=== PATIENT | female | born 1985 | race Hispanic/Latino ===

== ENCOUNTER 2021-09-29 12:17 | Observation (INO) | payer OTHER, SELFPAY ==
[2021-09-29] MEDS ORDERED: Promethazine HCl 25 MG/ML VIAL IM PRN (12:52)
[2021-09-29] MEDS ORDERED: Acetaminophen 500 MG TAB PO PRN (12:52)
[2021-09-29 12:53] VITALS: BMI 35.3
[2021-09-29] MEDS: Betamet Acet/Betamet Na Ph 30 MG/5 ML VIAL IM SCH (13:40)
[2021-09-29 13:55] LABS: ALT (SGPT) 123 U/L (8-55); AST (SGOT) 69 U/L (5-34); Albumin 3.1 g/dL (3.5-5.0); Alkaline Phosphatase 223 U/L (40-110); Anion Gap 16 mmol/L (10-20); BUN (Urea Nitrogen) 8 mg/dL (7.0-18.7); Bilirubin, Total 0.6 mg/dL (0.2-1.2); Calc. Creatinine Clearance 169 mL/min (70-130); Calcium 9.2 mg/dL (7.8-10.44); Carbon Dioxide 18 mmol/L (22-29); Chloride 105 mmol/L (98-107); Globulin 3.5 g/dL (2.4-3.5); Glucose 105 mg/dL (70-105); Potassium 3.9 mmol/L (3.5-5.1); Protein, Total 6.6 g/dL (6.0-8.3); Sodium 135 mmol/L (136-145)
[2021-09-29 19:16] LABS: SARS-CoV-2 NAA Rapid Test Not Detected (NotDetected)
[2021-09-29] MEDS ORDERED: HumaLOG 300 UNITS/3 ML VIAL SC SCH (20:00)
[2021-09-29] MEDS: Ursodiol 300 MG CAP PO SCH (21:57)
[2021-09-30] MEDS ORDERED: Ferrous Sulfate 325 MG TAB PO SCH (08:00)
[2021-09-30] MEDS: Ursodiol 300 MG CAP PO SCH ×2 (08:09→11:44)
[2021-09-30] MEDS ORDERED: Aspirin 81 mg Enteric Coated Tablet PO SCH (09:00)
[2021-09-30] MEDS ORDERED: Prenatal Vitamin 1 TAB PO SCH (09:00)
[2021-09-30] MEDS: Betamet Acet/Betamet Na Ph 30 MG/5 ML VIAL IM SCH (14:05)
== END 2021-09-30 17:00 | disposition home health service (06) ==
LOC: CSHLD/OP 12:17 → CSHLD 09-30 06:58 → INTOOBSV 09-30 06:58
PROVIDERS: ADMIT Family Medicine; ATTEND Family Medicine
DX: O26.613 Liver and biliary tract disorders in pregnancy, third trimester (principal); K83.1 Obstruction of bile duct; O32.2XX1 Maternal care for transverse and oblique lie, fetus 1; O32.2XX2 Maternal care for transverse and oblique lie, fetus 2; O30.033 Twin pregnancy, monochorionic/diamniotic, third trimester; O09.523 Supervision of elderly multigravida, third trimester; O24.419 Gestational diabetes mellitus in pregnancy, unspecified control; Z3A.34 34 weeks gestation of pregnancy; Z79.82 Long term (current) use of aspirin; Z98.890 Other specified postprocedural states; Z20.822 Contact with and (suspected) exposure to COVID-19
CPT/HCPCS: 36416; 76810; 76819; 80053; 82239; 99285; J0702; J1815; U0002

== ENCOUNTER 2021-10-06 14:57 | Day surgery (SDC) | payer SELFPAY ==
[2021-10-06 16:13] VITALS: BMI 33.1
[2021-10-06 19:10] LABS: SARS-CoV-2 NAA Rapid Test Not Detected (NotDetected)
== END 2021-10-06 18:13 | disposition home or self-care (01) ==
LOC: CSHLD/OP 14:57
PROVIDERS: ATTEND Family Medicine
DX: O24.419 Gestational diabetes mellitus in pregnancy, unspecified control (principal); O30.003 Twin pregnancy, unspecified number of placenta and unspecified number of amniotic sacs, third trimester; O32.2XX2 Maternal care for transverse and oblique lie, fetus 2; O09.523 Supervision of elderly multigravida, third trimester; Z3A.35 35 weeks gestation of pregnancy; Z79.82 Long term (current) use of aspirin; Z20.822 Contact with and (suspected) exposure to COVID-19
CPT/HCPCS: 59025; 76815; 76819; 99283; U0002

== ENCOUNTER 2021-10-08 10:39 | Inpatient (IN) | payer MEDICAID, OTHER, SELFPAY ==
[2021-10-08] MEDS: Lactated Ringer's 1,000 ML IV SCH (11:25)
[2021-10-08] MEDS ORDERED: hydrALAZINE 20 MG/ML VIAL SLOW IVP PRN (11:30)
[2021-10-08] MEDS ORDERED: Promethazine HCl 25 MG/ML VIAL IM PRN ×2 (11:30→15:15)
[2021-10-08] MEDS ORDERED: Ondansetron PF 4 MG/2 ML Vial IVP PRN ×2 (11:30→15:15)
[2021-10-08] MEDS ORDERED: Bicitra 30 ML UDCUP PO PRN (11:30)
[2021-10-08] MEDS ORDERED: Famotidine/PF 20 mg/2ml Vial SLOW IVP PRN (11:30)
[2021-10-08] MEDS ORDERED: CEFAZOLIN 2 GM in Premix Bag 1 BAG IVPB SCH (11:30)
[2021-10-08] MEDS ORDERED: Azithromycin 500 MG in Sodium Chloride 0.9% 250 ML 250 ML IVPB SCH (11:30)
[2021-10-08 12:01] LABS: Mean Corpuscular HGB CONC 33.9 g/dL (32.0-36.0); Mean Corpuscular Hemoglobin 30.7 pg (27.0-33.0); Mean Corpuscular Volume 90.8 fl (81.6-98.3); Platelet Count 210 10x3/uL (150-450); RBC Distribution Width 13.7 % (11.5-14.5); Red Blood Cell (RBC) Count 4.23 10x6/uL (3.90-5.03); White Blood Cell (WBC) Count 7.4 10x3/uL (3.5-10.5)
[2021-10-08 12:28] VITALS: BMI 30.1
[2021-10-08 12:28] LABS: Syphilis Antibody Nonreactive (Nonreactive); Syphilis Antibody Index 0.03 S/CO (<1.00 Non-Reactive)
[2021-10-08 12:29] LABS: Hep B Surf Ag Non-Reactive S/CO (NonReactive)
[2021-10-08 12:43] LABS: HBSAg Index 0.19 S/CO (0-0.99)
[2021-10-08] MEDS ORDERED: Oxytocin 10 UNITS/ML VIAL ONE ×2 (14:36→16:58)
[2021-10-08] MEDS ORDERED: Ketorolac Tromethamine 30 MG/ML VIAL ONE (14:37)
[2021-10-08] MEDS ORDERED: Phenylephrine 40 MG/NS 250 ML 250 ML ONE (14:37)
[2021-10-08] MEDS ORDERED: Dexamethasone 4 mg/ml Vial ONE (14:37)
[2021-10-08] MEDS ORDERED: PHENYLEPHRINE-NS 100 MCG/ML 10 ML SYRINGE ONE (14:37)
[2021-10-08] MEDS ORDERED: Morphine PF 10 MG/10 ML VIAL ONE (14:38)
[2021-10-08] MEDS ORDERED: Ondansetron PF 4 MG/2 ML Vial ONE (14:45)
[2021-10-08] MEDS ORDERED: Hydrocerin (Eucerin) Cream 120 gm Jar TOP PRN (15:15)
[2021-10-08] MEDS ORDERED: Meperidine HCl/PF 25 MG/ML VIAL SLOW IVP PRN (15:15)
[2021-10-08] MEDS ORDERED: HYDROmorphone 2 MG/ML VIAL SLOW IVP PRN (15:15)
[2021-10-08] MEDS ORDERED: Ketorolac Tromethamine 30 MG/ML VIAL IVP PRN (15:15)
[2021-10-08] MEDS ORDERED: Promethazine HCl 25 MG SUPP PR PRN (15:15)
[2021-10-08] MEDS ORDERED: diphenhydrAMINE 50 MG/ML VIAL IVP PRN (15:15)
[2021-10-08] MEDS ORDERED: Ketorolac Tromethamine 30 MG/ML VIAL IVP SCH (15:15)
[2021-10-08] MEDS ORDERED: Ondansetron HCl/PF 4 MG/2 ML Vial IVP PRN (15:15)
[2021-10-08] MEDS ORDERED: Naloxone HCl 0.4 mg/ml Vial IV PRN (15:15)
[2021-10-08] MEDS ORDERED: Naloxone HCl 0.4 mg/ml Vial IVP PRN ×2 (15:15)
[2021-10-08] MEDS ORDERED: Communication Order-Pharmacy FS SCH (15:15)
[2021-10-08] MEDS ORDERED: Fentanyl 100 MCG/2 ML VIAL SLOW IVP PRN (15:15)
[2021-10-08] MEDS ORDERED: NS w/ Oxytocin 30 units 500 ML ONE (19:26)
[2021-10-09] MEDS ORDERED: HYDROcodone/Acetaminophen 5/325 mg Tablet PO PRN (11:06)
[2021-10-09] MEDS ORDERED: Lanolin Ointment 7 GM TUBE TOP PRN (11:06)
[2021-10-09] MEDS ORDERED: Simethicone Chewable 80 MG TAB PO PRN (11:06)
[2021-10-09] MEDS ORDERED: Boostrix 0.5 ML (Tdap) VIAL IM ONE (11:06)
[2021-10-09] MEDS ORDERED: Meperidine HCl/PF 25 MG/ML VIAL IM PRN (11:06)
[2021-10-09] MEDS ORDERED: Promethazine HCl 25 MG/ML VIAL IM PRN (11:06)
[2021-10-09] MEDS ORDERED: Bisacodyl 10 MG SUPP PR PRN (11:06)
[2021-10-09] MEDS ORDERED: hydrALAZINE 20 MG/ML VIAL SLOW IVP PRN (11:06)
[2021-10-09] MEDS ORDERED: diphenhydrAMINE 25 MG CAP PO PRN (11:06)
[2021-10-09] MEDS ORDERED: Ondansetron PF 4 MG/2 ML Vial IVP PRN (11:06)
[2021-10-09] MEDS: Lactated Ringer's 1,000 ML IV SCH ×3 (12:22→21:07)
[2021-10-09] MEDS: HYDROcodone/Acetaminophen 5/325 mg Tablet PO PRN (12:27)
[2021-10-09] MEDS: Ibuprofen 800 MG TAB PO SCH ×2 (13:57→21:03)
[2021-10-09] MEDS: Docusate Calcium (SURFAK) 240 MG CAP PO SCH (21:03)
[2021-10-09] MEDS: Ferrous Sulfate 325 MG TAB PO SCH (21:06)
[2021-10-10] MEDS: HYDROcodone/Acetaminophen 5/325 mg Tablet PO PRN (00:54)
[2021-10-10 05:26] LABS: Hemoglobin 8.4 g/dL (12.0-15.5); Mean Corpuscular HGB CONC 34.1 g/dL (32.0-36.0); Mean Corpuscular Hemoglobin 31.2 pg (27.0-33.0); Mean Corpuscular Volume 91.4 fl (81.6-98.3); Mean Platelet Volume 12.5 fl (7.4-10.4); Platelet Count 218 10x3/uL (150-450); RBC Distribution Width 13.6 % (11.5-14.5); Red Blood Cell (RBC) Count 2.69 10x6/uL (3.90-5.03)
[2021-10-10] MEDS: Ibuprofen 800 MG TAB PO SCH ×3 (05:56→21:10)
[2021-10-10] MEDS: Lactated Ringer's 1,000 ML IV SCH ×2 (07:20→13:18)
[2021-10-10] MEDS: Docusate Calcium (SURFAK) 240 MG CAP PO SCH ×2 (08:19→21:10)
[2021-10-10] MEDS: Prenatal Vitamin 1 TAB PO SCH (08:19)
[2021-10-10] MEDS: Ferrous Sulfate 325 MG TAB PO SCH ×2 (08:19→21:13)
[2021-10-10] MEDS: Pseudoephedrine HCl 30 MG TAB PO SCH ×2 (10:26→16:06)
[2021-10-11] MEDS: Lactated Ringer's 1,000 ML IV SCH ×4 (00:02→10:25)
[2021-10-11] MEDS: Pseudoephedrine HCl 30 MG TAB PO SCH (00:32)
[2021-10-11] MEDS: HYDROcodone/Acetaminophen 5/325 mg Tablet PO PRN (03:21)
[2021-10-11] MEDS: Ibuprofen 800 MG TAB PO SCH ×3 (05:37→22:10)
[2021-10-11] MEDS: Ferrous Sulfate 325 MG TAB PO SCH ×2 (10:05→22:10)
[2021-10-11] MEDS: Prenatal Vitamin 1 TAB PO SCH (10:05)
[2021-10-11] MEDS: Docusate Calcium (SURFAK) 240 MG CAP PO SCH ×2 (10:05→22:10)
[2021-10-12] MEDS: Lactated Ringer's 1,000 ML IV SCH ×2 (05:03→12:27)
[2021-10-12] MEDS: Ibuprofen 800 MG TAB PO SCH ×2 (05:44→14:30)
[2021-10-12 07:37] VITALS: BP 120/71; TEMP 98
[2021-10-12] MEDS: Docusate Calcium (SURFAK) 240 MG CAP PO SCH (08:56)
[2021-10-12] MEDS: Ferrous Sulfate 325 MG TAB PO SCH (08:56)
[2021-10-12] MEDS: Prenatal Vitamin 1 TAB PO SCH (08:56)
[2021-10-12] MEDS: HYDROcodone/Acetaminophen 5/325 mg Tablet PO PRN (11:21)
== END 2021-10-12 17:35 | disposition home or self-care (01) | DRG 786 ==
LOC: CSHLD 10:39 → CSHPP 23:20
PROVIDERS: ADMIT Family Medicine; ATTEND Family Medicine
PROC: 10D00Z1 Extraction of Products of Conception, Low, Open Approach (ICD-10-PCS; principal; 2021-10-08)
DX: O30.043 Twin pregnancy, dichorionic/diamniotic, third trimester (principal); O60.14X2 Preterm labor third trimester with preterm delivery third trimester, fetus 2; K83.1 Obstruction of bile duct; O26.62 Liver and biliary tract disorders in childbirth; Z3A.35 35 weeks gestation of pregnancy; Z37.2 Twins, both liveborn; O24.429 Gestational diabetes mellitus in childbirth, unspecified control
CPT/HCPCS: 36415; 36416; 51702; 85027; 86780; 86850; 86900; 86901; 87340; 88307; 90715; J1100; J1200; J1885; J2274; J2405; J2590; J7120; S0028

== ENCOUNTER 2021-10-16 10:10 | Emergency (ER) | payer MEDICAID, OTHER ==
[2021-10-16] MEDS ORDERED: Ketorolac Tromethamine 30 MG/ML VIAL ONE (10:49)
[2021-10-16 11:03] LABS: #Eosinphils 0.1 10x3/uL (0.0-0.5); #Monocytes 0.7 10x3/uL (0.0-1.1); #Neutrophils 8.6 10x3/uL (1.5-8.4); %Basophils 0.2 % (0.0-2.0); %Eosinophils 0.7 % (0.0-6.0); %Lymphocytes 10.2 % (18.0-47.0); %Monocytes 6.7 % (0.0-10.0); %Neutrophils 81.2 % (40.0-75.0); Hemoglobin 8.4 g/dL (12.0-15.5); Mean Corpuscular HGB CONC 32.7 g/dL (32.0-36.0); Mean Corpuscular Volume 94.8 fl (81.6-98.3); Mean Platelet Volume 9.9 fl (7.4-10.4); Platelet Count 382 10x3/uL (150-450); RBC Distribution Width 14.9 % (11.5-14.5); Red Blood Cell (RBC) Count 2.71 10x6/uL (3.90-5.03); White Blood Cell (WBC) Count 10.5 10x3/uL (3.5-10.5)
[2021-10-16 11:19] LABS: ALT (SGPT) 120 U/L (8-55); AST (SGOT) 85 U/L (5-34); Albumin 3.2 g/dL (3.5-5.0); Alkaline Phosphatase 134 U/L (40-110); Anion Gap 13 mmol/L (10-20); BUN (Urea Nitrogen) 8 mg/dL (7.0-18.7); Bilirubin, Total 0.4 mg/dL (0.2-1.2); Calc. Creatinine Clearance 0 mL/min (70-130); Calcium 8.7 mg/dL (7.8-10.44); Carbon Dioxide 23 mmol/L (22-29); Chloride 103 mmol/L (98-107); Globulin 3.5 g/dL (2.4-3.5); Glucose 101 mg/dL (70-105); Potassium 3.8 mmol/L (3.5-5.1); Protein, Total 6.7 g/dL (6.0-8.3); Sodium 135 mmol/L (136-145)
[2021-10-16 11:30] LABS: Bilirubin Neg (Negative); Blood, Urine 250 (Negative); Clarity Slightly Cloudy (Clear); Glucose, Urine (Dipstick) Normal (Negative); Ketone, Urine Negative (Negative); Leukocyte 500 (Negative); Nitrite Negative (Negative); Protein, Urine (Dipstick) 100 mg/dl (Neg-Trace); Urobilinogen Normal mg/dL (Less than 2)
[2021-10-16 11:45] LABS: RBC/HPF 21-50 HPF (0-3); WBC/HPF 21-50 HPF (0-3)
[2021-10-16 11:46] LABS: Bacteria/HPF 1+ HPF (None Seen); Transitional Epithelial 0-3 HPF (None Seen)
== END 2021-10-16 12:47 ==
LOC: CSHERS 10:10
DX: O72.1 Other immediate postpartum hemorrhage (principal)
CPT/HCPCS: 36415; 76856; 80053; 81003; 81015; 85025; 96372; J1885